=== PATIENT | male | born 1955 | race Caucasian/White ===

== ENCOUNTER 2017-03-22 14:20 | Emergency (ER) | payer BC, OTHER ==
--- NOTE | 2017-03-22 16:48 | UC ---
Headache HPI - HPI Summary HPI Summary: patient has had scalp pain for a few months. he can feel the pain when he moves his hair. - History Of Current Complaint Chief Complaint: UCHeadajacquelin Stated Complaint: HEADACHE 4 DAYS Time Seen by Provider: 03/22/17 16:31 Hx Obtained From: Patient Onset/Duration: Sudden Onset, Lasting Days Onset Of Symptoms: Still Present Initially Headache Was: Mild Currently Pain Is: Moderate Timing: Intermittent, Lasting: Character: Sharp Location of Headache: Other: - top of head Aggravating Factor: Other - touch Allevating Factors: Nothing - Allergies/Home Medications Allergies/Adverse Reactions: Allergies Allergy/AdvReac Type Severity Reaction Status Date / Time Penicillins Allergy Unknown as a child Verified 03/22/17 14:57 Home Medications: Home Medications Acetaminophen TAB* [Tylenol TAB*] 650 mg PO ONCE PRN 03/22/17 [History Confirmed 03/22/17] Ibuprofen TAB* [Advil TAB*] 600 mg PO DAILY PRN 03/22/17 [History Confirmed ] PMH/Surg Hx/FS Hx/Imm Hx Previously Healthy: Yes - Surgical History Surgical History: Yes Surgery Procedure, Year, and Place: appendectomy age 26 yr. fx left leg; abdominal hernia repair 2011. jaw age 19 yo. inquinal hernias - Family History Known Family History: Negative: Cardiac Disease, Hypertension - Social History Alcohol Use: Occasionally Alcohol Amount: min. 3 cups coffee daily Substance Use Type: None Smoking Status (MU): Current Some Day Smoker Type: Cigars - Immunization History Most Recent Influenza Vaccination: none Hx Tetanus, Diphtheria Vaccination: No Vaccination Up to Date: No Review of Systems Constitutional: Negative Skin: Other - sensitve scalp Eyes: Negative ENT: Negative Respiratory: Negative Cardiovascular: Negative Gastrointestinal: Negative Genitourinary: Negative Motor: Negative Neurovascular: Negative Neurological: Headache Psychological: Negative All Other Systems Reviewed And Are Negative: Yes Physical Exam Triage Information Reviewed: Yes Appearance: Well-Appearing, Well-Nourished, Pain Distress Vital Signs: Initial Vital Signs Temp 98.9 F 03/22/17 14:41 Pulse 63 03/22/17 14:41 Resp 18 03/22/17 14:41 BP 163/105 03/22/17 14:41 Pulse Ox 98 03/22/17 14:41 Vital Signs Reviewed: Yes Eye Exam: Normal ENT Exam: Normal Dental Exam: Normal Neck exam: Normal Respiratory Exam: Normal Cardiovascular Exam: Normal Abdominal Exam: Normal Bowel Sounds: Positive: Present Musculoskeletal Exam: Normal Neurological Exam: Normal Neurological: Positive: Other: - cranial nerves intact, PERRLA, EOMI Psychological Exam: Normal Skin Exam: Normal Headache Course/Dx - Course Course Of Treatment: hx obtained, exam performed ,meds reviewed, treated for neuralgia, advised to follow up with a primary for pain and high BP - Differential Dx/Diagnosis Differential Diagnosis/HQI/PQRI: TIA, Meningitis, Migraine, Temporal Arteritis, Tension Headache, Other - neuralgia hypertension Provider Diagnoses: neuralgia. htn Discharge - Discharge Plan Condition: Stable Disposition: HOME Prescriptions: Gabapentin CAP(*) [Neurontin 100 mg CAP(*)] 100 mg PO TID #90 cap Patient Education Materials: Hypertension (ED)
[2017-03-22 16:54] VITALS: BP 183/106
== END 2017-03-22 17:00 | disposition home or self-care (01) ==
LOC: UCCORT 14:20
DX: M79.2 Neuralgia and neuritis, unspecified (principal); I10 Essential (primary) hypertension; Z72.0 Tobacco use
CPT/HCPCS: 99212; G0463

== ENCOUNTER 2017-09-15 17:42 | Emergency (ER) | payer BC, OTHER ==
[2017-09-15 20:21] VITALS: BP 151/88
[2017-09-15] MEDS ORDERED: DOXYcycline CAP(*) 100 MG PO ONE (20:57)
--- NOTE | 2017-09-15 20:57 | UC ---
Skin Complaint HPI - HPI Summary HPI Summary: Pt was recently an ED and treated with IV for flu. Pt states x 2 days progressive warmth, erythema, and swelling of left hand, dorsum starting at IV site. no fever, chills No red streaking. No weakness No wrist, elbow pain. Pt not immunocompromised. No h.o MRSA Pt's meds reviewed this visit - History of Current Complaint Chief Complaint: UCUpperExtremity Time Seen by Provider: 09/15/17 20:48 Stated Complaint: LEFT HAND INJURY Hx Obtained From: Patient Onset/Duration: Gradual Onset Skin Exposure Onset/Duration: Days Ago - Allergy/Home Medications Allergies/Adverse Reactions: Allergies Allergy/AdvReac Type Severity Reaction Status Date / Time Penicillins Allergy Unknown as a child Verified 09/15/17 20:21 Home Medications: Home Medications Hydrochlorothiazide TAB* [Hydrodiuril TAB*] 25 mg PO DAILY 09/15/17 [History Confirmed 09/15/17] Review of Systems Skin: Other - erythema dorsum left hand Musculoskeletal: Other: - edema left hand, dorsum Is Patient Immunocompromised?: No All Other Systems Reviewed And Are Negative: Yes PMH/Surg Hx/FS Hx/Imm Hx Previously Healthy: Yes - Surgical History Surgical History: Yes Surgery Procedure, Year, and Place: appendectomy age 26 yr. fx left leg; abdominal hernia repair 2011. jaw age 19 yo. inquinal hernias - Family History Known Family History: Negative: Cardiac Disease, Hypertension - Social History Occupation: Employed Full-time Lives: With Family Alcohol Use: Occasionally Alcohol Amount: min. 3 cups coffee daily Substance Use Type: None Smoking Status (MU): Current Some Day Smoker Type: Cigars - Immunization History Most Recent Influenza Vaccination: none Hx Tetanus, Diphtheria Vaccination: No Vaccination Up to Date: No Physical Exam Triage Information Reviewed: Yes Appearance: Well-Appearing, No Pain Distress, Well-Nourished Vital Signs: Initial Vital Signs Temp 98.4 F 09/15/17 20:16 Pulse 61 09/15/17 20:16 Resp 16 09/15/17 20:16 BP 151/88 09/15/17 20:16 Pulse Ox 98 09/15/17 20:16 Vital Signs Reviewed: Yes Eye Exam: Normal Eyes: Positive: Conjunctiva Clear ENT: Positive: Hearing grossly normal Neck exam: Normal Neck: Positive: Supple, Nontender, No Lymphadenopathy Respiratory Exam: Normal Respiratory: Positive: Chest non-tender, Lungs clear, Normal breath sounds, No respiratory distress, No accessory muscle use Cardiovascular Exam: Normal Cardiovascular: Positive: RRR, No Murmur, Pulses Normal, Other: - 2+ radial,, w + ulnar CBT all digits Musculoskeletal Exam: Normal Musculoskeletal: Positive: Other: - left Neurological Exam: Normal Neurological: Positive: Alert, Other: - + thumb up, a ok, finger spread finger cross without pain Psychological Exam: Normal Skin: Positive: Other - mild warmth and edema dorsum left hand with mild extension of edema to ring and middle figners left hand no edema palmar surface Course/Dx - Course Course Of Treatment: Pt with mild cellulitis and edema dorsum left hand s/p iv approx 1 week ago. no crepitus fluctance. pt placed in volar splint. elevate. cbc/bmp. doxy. recheck 36-48 hours. return precautions. pt comfortable and in agreement with plan - Diagnoses Provider Diagnoses: cellulitis Procedures - Splinting Hand-Made Type: orthoglass Splint: volar Pre-Proc Neuro Vasc Exam: normal Post-Proc Neuro Vasc Exam: normal, unchanged from pre-exam Discharge - Discharge Plan Condition: Stable Disposition: HOME Prescriptions: DOXYcycline CAP(*) [DOXYcycline 100MG CAP(*)] 100 mg PO BID #20 cap Patient Education Materials: Cellulitis (ED) Referrals: Lisandro Dodge MD [Primary Care Provider] - Additional Instructions: - wear splint until you are seen in follow-up - wear sling to help elevate your arm to decrease swelling - Okay to alternate ibuprofen (Advil, Motrin) and Tylenol every 3 hours for pain - Take antibiotics as prescribed until gone - You should have a re-evaluation in 36-48 hours. COntact your doctor or return to the urgent care. If you develop high fevers, shaking chills, increased pain or ANY other concerns - go directly to the emergency department
[2017-09-16 10:48] LABS: ABS Basophils 0 10^3/ul (0-0.2); ABS Eosinophils 0.1 10^3/ul (0-0.6); ABS Lymphocytes 1.8 10^3/ul (1.0-4.8); ABS Monocytes 0.6 10^3/ul (0-0.8); ABS Neutrophils 4.2 10^3/ul (1.5-7.7); ABS Nucleated RBC 0 10^3/ul; Eosinophil % 1.7 % (0-6); Hematocrit 39 % (42-52); Hemoglobin 13.5 g/dl (14.0-18.0); Lymphocyte % 27.1 % (25-47); Mean Corpuscular HGB Conc 34 g/dl (31-36); Mean Corpuscular Hemoglobin 30 pg (27-31); Mean Corpuscular Volume 87 fL (80-94); Mean Platelet Volume 8 um3 (7.4-10.4); Nucleated Red Blood Cells % 0.2; Platelet Count 235 10^3/ul (150-450); Red Blood Count 4.51 10^6/ul (4.0-5.4); Red Cell Distribution Width 13 % (10.5-15); White Blood Count 6.7 10^3/ul (3.5-10.8)
[2017-09-16 11:04] LABS: EGFR Non-African American 69.5 (>60)
== END 2017-09-15 21:25 | disposition home or self-care (01) ==
LOC: UCCORT 17:42
DX: L03.114 Cellulitis of left upper limb (principal); Z90.89 Acquired absence of other organs; Z88.0 Allergy status to penicillin; Z72.0 Tobacco use
CPT/HCPCS: 36415; 80048; 85025; 99213; A9270-GY; G0463

== ENCOUNTER 2019-03-07 19:36 | Emergency (ER) | payer BC ==
--- NOTE | 2019-03-07 20:33 | UC ---
Hand/Wrist HPI - HPI Summary HPI Summary: C/O dorsal lump right wrist x 3 days with increasing pain. - History Of Current Complaint Chief Complaint: MARCOkin Stated Complaint: RIGHT WRIST COMPLAINT Time Seen by Provider: 03/07/19 20:16 Hx Obtained From: Patient Onset/Duration: Sudden Onset, Lasting Days - 3, Worse Since - onset Severity Initially: Mild Severity Currently: Mild Pain Intensity: 2 Character Of Pain: Dull, Aching Alleviating Factor(s): Nothing Associated Signs And Symptoms: Positive: Swelling. Negative: Numbness/Tingling Related History: Dominant Hand Right - Allergies/Home Medications Allergies/Adverse Reactions: Allergies Allergy/AdvReac Type Severity Reaction Status Date / Time Penicillins Allergy Unknown Verified 03/07/19 20:09 Reaction Details PMH/Surg Hx/FS Hx/Imm Hx Previously Healthy: Yes Cardiovascular History: Hypertension - Surgical History Surgical History: Yes Surgery Procedure, Year, and Place: appendectomy age 26 yr. fx left leg. abdominal hernia repair 2012. jaw age 19 yo. inquinal hernias - Family History Known Family History: Positive: Hypertension Negative: Cardiac Disease - Social History Occupation: Employed Full-time Lives: With Family Alcohol Use: Occasionally Alcohol Amount: min. 3 cups coffee daily Substance Use Type: None Smoking Status (MU): Current Some Day Smoker Type: Cigars - Immunization History Most Recent Influenza Vaccination: none Hx Tetanus, Diphtheria Vaccination: No Vaccination Up to Date: No Review of Systems All Other Systems Reviewed And Are Negative: Yes Musculoskeletal: Positive: Arthralgia - right wrist Physical Exam Triage Information Reviewed: Yes Appearance: Well-Appearing, No Pain Distress, Well-Nourished Vital Signs: Initial Vital Signs Temp 98.1 F 03/07/19 20:00 Pulse 57 03/07/19 20:00 Resp 16 03/07/19 20:00 BP 178/99 03/07/19 20:00 Pulse Ox 97 03/07/19 20:00 Vital Signs Reviewed: Yes Eyes: Positive: Conjunctiva Clear Neck exam: Normal Respiratory Exam: Normal Cardiovascular Exam: Normal Musculoskeletal: Positive: ROM Limited @ - right wrist, Other: - tender swelling dorsal right wrist. Neurological Exam: Normal Psychological Exam: Normal Skin Exam: Normal Hand/Wrist Course/Dx - Differential Dx/Diagnosis Differential Diagnosis/HQI/PQRI: Carpal Tunnel Syndrome, Sprain, Strain, Tendonitis Provider Diagnosis: Ganglion, right wrist, Hypertension Discharge - Sign-Out/Discharge Documenting (check all that apply): Patient Departure All imaging exams completed and their final reports reviewed: No Studies - Discharge Plan Condition: Stable Disposition: HOME Patient Education Materials: Ganglion Cysts (ED), Hypertension (ED) Referrals: Lisandro Dodge MD [Primary Care Provider] - 4 Days (Recheck blood pressure) Juana John MD [Medical Doctor] - 3 Days (Evaluate ganglion cyst) - Billing Disposition and Condition Condition: STABLE Disposition: Home
[2019-03-07 20:36] VITALS: BP 181/94
== END 2019-03-07 20:41 | disposition home or self-care (01) ==
LOC: UCCORT 19:36
DX: M67.431 Ganglion, right wrist (principal); I10 Essential (primary) hypertension; F17.210 Nicotine dependence, cigarettes, uncomplicated
CPT/HCPCS: 99212; G0463

== ENCOUNTER 2019-05-04 08:43 | Emergency (ER) | payer BC ==
[2019-05-04 09:02] VITALS: BP 175/98
--- NOTE | 2019-05-04 09:13 | UC ---
Skin Complaint HPI - HPI Summary HPI Summary: rash left lower leg x 3 days the area is red, swollen "bumpy" warm touch not painful + itchy + spider / insect bite 3 days ago no fever , no chills - History of Current Complaint Chief Complaint: UCSkin Time Seen by Provider: 05/04/19 08:58 Stated Complaint: SKIN COMPLAINT,LEFT LEG Hx Obtained From: Patient Onset/Duration: Gradual Onset, Lasting Days - 3, Still Present Timing: Constant Onset Severity: Moderate Current Severity: Moderate Pain Intensity: 0 Location: Discrete - left lower leg Character: Swelling, Pruritus, Redness Aggravating Factor(s): Nothing Alleviating Factor(s): Nothing Associated Signs & Symptoms: Negative: Nausea, Vomiting, Numbness, Fever, Chills , Tenderness - Allergy/Home Medications Allergies/Adverse Reactions: Allergies Allergy/AdvReac Type Severity Reaction Status Date / Time Penicillins Allergy See Comment Verified 05/04/19 09:02 Home Medications: Home Medications Doxazosin TAB* [Cardura TAB*] 2 mg PO BEDTIME 05/04/19 [History Confirmed ] PMH/Surg Hx/FS Hx/Imm Hx Cardiovascular History: Hypertension - Surgical History Surgical History: Yes Surgery Procedure, Year, and Place: appendectomy age 26 yr. fx left leg - SURG - TIB/FIB. abdominal hernia repair 2011. jaw age 19 yo - BROKE JAW TO RESET OUT OF ALINGEMENT. inquinal hernias - Family History Known Family History: Positive: Hypertension Negative: Cardiac Disease - Social History Alcohol Use: Occasionally Alcohol Amount: min. 3 cups coffee daily Substance Use Type: None Smoking Status (MU): Current Some Day Smoker Type: Cigars Amount Used/How Often: once a month - Immunization History Most Recent Influenza Vaccination: none Hx Tetanus, Diphtheria Vaccination: No Vaccination Up to Date: No Review of Systems All Other Systems Reviewed And Are Negative: Yes Constitutional: Positive: Negative Skin: Positive: Rash Eyes: Positive: Negative ENT: Positive: Negative Is Patient Immunocompromised?: No Physical Exam Triage Information Reviewed: Yes Appearance: Well-Appearing, No Pain Distress, Well-Nourished Vital Signs: Initial Vital Signs Temp 98.2 F 05/04/19 08:56 Pulse 63 05/04/19 08:56 Resp 18 05/04/19 08:56 BP 175/98 05/04/19 08:56 Pulse Ox 99 05/04/19 08:56 Vital Signs Reviewed: Yes Eye Exam: Normal Eyes: Positive: Conjunctiva Clear ENT: Positive: Normal ENT inspection, Hearing grossly normal, Pharynx normal Neck: Positive: Supple, Nontender, No Lymphadenopathy Respiratory: Positive: Chest non-tender, Lungs clear, Normal breath sounds Cardiovascular: Positive: RRR, No Murmur, Pulses Normal Skin: Positive: Other - left lower leg : + maculopapulary rash, + swollen, no tenderness, + warm to touch Course/Dx - Course Course Of Treatment: HTN: cont. your current meds follow up with your pcp in one week - Diagnoses Provider Diagnosis: Insect bite of left leg, Hypertension Discharge ED - Sign-Out/Discharge Documenting (check all that apply): Patient Departure All imaging exams completed and their final reports reviewed: No Studies - Discharge Plan Condition: Stable Disposition: HOME Prescriptions: DOXYcycline CAP(*) [DOXYcycline 100MG CAP(*)] 100 mg PO BID #20 cap Triamcinolone 0.1% CREAM (NF) [Kenalog 0.1% Cream (NF)] 1 applic TOPICAL BID # 60 gm Patient Education Materials: Cellulitis (ED), Insect Bite or Sting (ED) Referrals: Lisandro Dodge MD [Primary Care Provider] - 7 Days - Billing Disposition and Condition Condition: STABLE Disposition: Home
== END 2019-05-04 09:12 | disposition home or self-care (01) ==
LOC: UCCORT 08:43
DX: S80.862A Insect bite (nonvenomous), left lower leg, initial encounter (principal); W57.XXXA Bitten or stung by nonvenomous insect and other nonvenomous arthropods, initial encounter; Y92.9 Unspecified place or not applicable; I10 Essential (primary) hypertension; Z88.0 Allergy status to penicillin; F17.290 Nicotine dependence, other tobacco product, uncomplicated
CPT/HCPCS: 99212; G0463

== ENCOUNTER 2019-11-13 19:29 | Emergency (ER) | payer BC ==
[2019-11-13 19:51] VITALS: BP 161/96
[2019-11-13] MEDS ORDERED: Triamcinolone Acetonide* 40 MG/ML 1 ML VIAL IM ONE (20:21)
[2019-11-13] MEDS ORDERED: DOXYcycline CAP(*) 100 MG PO ONE (20:26)
--- NOTE | 2019-11-13 20:32 | UC ---
Skin Complaint HPI - HPI Summary HPI Summary: 64 yo male with onset of left hand rash /swelling and redness x 1 day Had been out in the [place] walking his dog a few days ago Had similar rashes before rxed with antibiotic and medrol dose larissa rxed with steroid cr see by photonic laboratory technician with non diagnostic biopsy multiple scattered vesicles/blister dorsum of right hand with marked dorsal hand edema and erthyema quarter sized weeping lesion left upper arm VERY PRURITIC - History of Current Complaint Chief Complaint: UCSkin Time Seen by Provider: 11/13/19 20:03 Stated Complaint: HAND ISSUES Hx Obtained From: Patient Onset/Duration: Sudden Onset, Lasting Hours Timing: Constant Onset Severity: Mild Current Severity: Mild Pain Intensity: 0 Pain Scale Used: 0-10 Numeric Location: Hand (Left) Character: Swelling, Pruritus, Redness Aggravating Factor(s): Nothing Alleviating Factor(s): Nothing Associated Signs & Symptoms: Positive: Rash. Negative: Nausea, Vomiting, Numbness, Thirst, Diaphoresis, Weakness, Pallor, Shivering, Difficulty Breathing , Fever, Chills, Cough, Wheezing, Chest Pain, Hoarseness, Throat Tightening, Abdominal Pain, Lightheadedness, Syncope, Drainage, Bruising, Tenderness, Red Streaks, Joint Swelling - Allergy/Home Medications Allergies/Adverse Reactions: Allergies Allergy/AdvReac Type Severity Reaction Status Date / Time Penicillins Allergy See Comment Verified 11/13/19 19:51 Home Medications: Home Medications Doxazosin TAB* [Cardura TAB*] 2 mg PO BEDTIME 05/04/19 [History Confirmed ] Triamcinolone 0.1% CREAM (NF) [Kenalog 0.1% Cream (NF)] 1 applic TOPICAL BID # 60 gm 05/04/19 [Rx Confirmed 11/13/19] DOXYcycline CAP(*) [DOXYcycline 100MG CAP(*)] 100 mg PO BID #12 cap 11/13/19 [Rx ] PMH/Surg Hx/FS Hx/Imm Hx Previously Healthy: Yes Cardiovascular History: Hypertension - Surgical History Surgical History: Yes Surgery Procedure, Year, and Place: appendectomy age 26 yr. fx left leg - SURG - TIB/FIB. abdominal hernia repair 2011. jaw age 19 yo - BROKE JAW TO RESET OUT OF ALINGEMENT. inquinal hernias - Family History Known Family History: Positive: Hypertension Negative: Cardiac Disease - Social History Alcohol Use: Weekly Alcohol Amount: weekends Substance Use Type: None Smoking Status (MU): Former Smoker Type: Cigars Amount Used/How Often: once a month - Immunization History Most Recent Influenza Vaccination: none Hx Tetanus, Diphtheria Vaccination: No Vaccination Up to Date: No Review of Systems All Other Systems Reviewed And Are Negative: Yes Constitutional: Positive: Negative Skin: Positive: Rash Eyes: Positive: Negative ENT: Positive: Negative Respiratory: Positive: Negative Cardiovascular: Positive: Negative Gastrointestinal: Positive: Negative Genitourinary: Positive: Negative Motor: Positive: Negative Neurovascular: Positive: Negative Musculoskeletal: Positive: Edema Neurological/Mental Status: Positive: Negative Psychological: Positive: Negative Physical Exam Vital Signs: Initial Vital Signs Temp 97.8 F 11/13/19 19:39 Pulse 63 11/13/19 19:39 Resp 17 11/13/19 19:39 BP 161/96 11/13/19 19:39 Pulse Ox 97 11/13/19 19:39 Course/Dx - Diagnoses Provider Diagnosis: Rash and nonspecific skin eruption, Contact dermatitis, Cellulitis of left hand Discharge ED - Sign-Out/Discharge Documenting (check all that apply): Patient Departure All imaging exams completed and their final reports reviewed: No Studies - Discharge Plan Condition: Stable Disposition: HOME Prescriptions: DOXYcycline CAP(*) [DOXYcycline 100MG CAP(*)] 100 mg PO BID #12 cap Patient Education Materials: Contact Dermatitis (ED), Cellulitis (ED) Referrals: Lisandro Dodge MD [Primary Care Provider] - Additional Instructions: call your MD or your Hospital Nurse Liaison Friday AM for follow up recheck for fever or worsening symptoms elevate left arm - Billing Disposition and Condition Condition: STABLE Disposition: Home
== END 2019-11-13 20:47 | disposition home or self-care (01) ==
LOC: UCCORT 19:29
DX: L25.9 Unspecified contact dermatitis, unspecified cause (principal); L03.114 Cellulitis of left upper limb; I10 Essential (primary) hypertension; Z79.899 Other long term (current) drug therapy; Z88.0 Allergy status to penicillin; Z87.891 Personal history of nicotine dependence
CPT/HCPCS: 87070; 87077; 87205; 96372; 99212; A9270-GY; G0463; J3301